=== PATIENT | female | born 1990 | race Two or more races ===

== ENCOUNTER 2019-11-15 23:33 | Emergency (ER) | payer OTHER ==
[~2019-11-15] VITALS: Ht 162.6 cm; Wt 81.6 kg
[2019-11-16] MEDS ORDERED: ASPIRIN EC81 MG (00:02)
[2019-11-16] MEDS ORDERED: PRENATALES (00:03)
== END 2019-11-16 03:49 | disposition home or self-care (01) ==
LOC: ER 23:33
DX: O20.8 Other hemorrhage in early pregnancy (principal); Z3A.12 12 weeks gestation of pregnancy

== ENCOUNTER 2019-12-18 09:25 | Emergency (ER) | payer OTHER ==
[~2019-12-18] VITALS: Ht 162.6 cm; Wt 81.6 kg
[~2019-12-18 09:25] MED LIST: ASPIRIN EC81 MG; PRENATALES
[2019-12-18] MEDS ORDERED: DICLEGIS DR 101 EACH PO (12:03)
== END 2019-12-18 12:06 | disposition home or self-care (01) ==
LOC: ER 09:25
DX: O26.852 Spotting complicating pregnancy, second trimester (principal); O26.892 Other specified pregnancy related conditions, second trimester; R11.2 Nausea with vomiting, unspecified; O36.80X1 Pregnancy with inconclusive fetal viability, fetus 1; O26.842 Uterine size-date discrepancy, second trimester; Z3A.17 17 weeks gestation of pregnancy

== ENCOUNTER → 2020-01-15 | Outpatient (CLI) | payer OTHER ==
[~2020-01-15] MED LIST changes: +DICLEGIS DR 101 EACH PO
== END | disposition home or self-care (01) ==
LOC: PRENATAL 10:00
PROVIDERS: ATTEND Obstetrics & Gynecology Maternal & Fetal Medicine
DX: O35.0XX1 Maternal care for (suspected) central nervous system malformation in fetus, fetus 1 (principal); O35.3XX1 Maternal care for (suspected) damage to fetus from viral disease in mother, fetus 1; O98.512 Other viral diseases complicating pregnancy, second trimester; Z36.89 Encounter for other specified antenatal screening; Z3A.21 21 weeks gestation of pregnancy

== ENCOUNTER 2020-05-20 13:30 | Inpatient (IN) | payer OTHER ==
[~2020-05-20] VITALS: Ht 162.6 cm; Wt 91.2 kg
[2020-05-25] MEDS ORDERED: PRENATAL + DHA1 EAC1 PO (08:30)
[2020-05-26] MEDS ORDERED: IBUPROFEN800 MG PO (06:34)
[2020-05-26] MEDS ORDERED: PREPLUS CA-FE1 EACH PO (06:34)
[2020-05-26] MEDS ORDERED: SIMETHICONE125 M1 PO (06:34)
== END 2020-05-27 13:12 | disposition home or self-care (01) | DRG 788 ==
LOC: LDR 05-23 10:29 → O/R 05-23 18:00 → OB/GYN 05-23 20:25 → LDR 05-27 13:30
PROVIDERS: ADMIT Obstetrics & Gynecology; ATTEND Obstetrics & Gynecology
PROC: 10D00Z1 Extraction of Products of Conception, Low, Open Approach (ICD-10-PCS; 2020-05-23)
PROC: 4A1HXFZ Monitoring of Products of Conception, Cardiac Rhythm, External Approach (ICD-10-PCS; principal; 2020-05-23 17:00)
DX: O62.1 Secondary uterine inertia (principal); Z3A.39 39 weeks gestation of pregnancy; Z37.0 Single live birth; Z20.828 Contact with and (suspected) exposure to other viral communicable diseases